=== PATIENT | male | born 1975 | race Caucasian/White ===

== ENCOUNTER 2017-09-13 20:52 | Emergency (ER) | payer SELFPAY ==
[2017-09-13 21:15] VITALS: BP 138/78; PULSE 81; RESP 18; TEMP 98.5; O2SAT 99
--- NOTE | 2017-09-13 21:30 | ED PDOC ---
Lower Extremity Pain/Injury Time Seen by Provider: 09/13/17 21:16 Chief Complaint (Nursing): Lower Extremity Problem/Injury Chief Complaint (Provider): bilateral knee pain and rash History Per: Patient History/Exam Limitations: no limitations Onset/Duration Of Symptoms: Days (x1 week) Current Symptoms Are (Timing): Still Present Additional Complaint(s): 41 year old male presents to the emergency department complaining of leg pain and rash ongoing for 1 week. Patient ran on the treadmill last week and developed pain to both knees and shins. A friend of his gave him a topical pain reliever cream and after applying the cream he developed a rash to both legs. Patient is not sure of the name of the cream he was using. Patient has been applying alcohol to affected area daily but skin now feels more irritated. Aleve has not helped leg pain. He denies fever or chills. PMD: none provided Past Medical History Reviewed: Historical Data, Nursing Documentation, Vital Signs Vital Signs: Last Vital Signs Temp 98.5 F 09/13/17 21:10 Pulse 81 09/13/17 21:10 Resp 18 09/13/17 21:10 BP 138/78 09/13/17 21:10 Pulse Ox 99 09/13/17 21:10 - Medical History PMH: No Chronic Diseases - Surgical History Surgical History: No Surg Hx - Family History Family History: States: No Known Family Hx - Living Arrangements Living Arrangements: With Family - Social History Current smoker - smoking cessation education provided: No Alcohol: None Drugs: Denies - Home Medications Home Medications: Ambulatory Orders Medication Instructions Recorded Cyclobenzaprine HCl [Flexeril] 10 mg PO TID #21 tab 05/17/14 Ketorolac Tromethamine [Toradol] 10 mg PO Q6 PRN #19 tab 05/17/14 Clindamycin [Cleocin] 300 mg PO QID #28 cap 09/13/17 Cyclobenzaprine [Cyclobenzaprine 10 mg PO TID PRN #20 tab 09/13/17 HCl] Ibuprofen [Motrin Tab] 800 mg PO Q8 PRN #20 tab 09/13/17 Prednisone 50 mg PO DAILY #5 tablet 09/13/17 - Allergies Allergies/Adverse Reactions: Allergies Allergy/AdvReac Type Severity Reaction Status Date / Time No Known Allergies Allergy Verified 05/17/14 07:15 Wells Criteria for PE - Wells Criteria for Pulmonary Embolism Clinical Signs and Symptoms of DVT: No P.E is #1 Diagnosis, or Equally Likely: No Heart Rate >100: No Immobilization at least 3 days;Surgery previous 4 weeks: No Previous, objectively diagnosed PE or DVT: No Hemoptysis: No Malignancy w/treatment within 6 months, or palliative: No Total Score: 0 Review of Systems ROS Statement: Except As Marked, All Systems Reviewed And Found Negative Musculoskeletal: Positive for: Other (bilateral leg pain) Skin: Positive for: Rash (on both lower extremities ) Physical Exam - Reviewed Nursing Documentation Reviewed: Yes Vital Signs Reviewed: Yes - Physical Exam Appears: Positive for: Well, Non-toxic, No Acute Distress Head Exam: Positive for: ATRAUMATIC, NORMAL INSPECTION, NORMOCEPHALIC Skin: Positive for: Rash (pustular rash on erythematous base noted to bilateral shins, no active drainage) Eye Exam: Positive for: Normal appearance Extremity: Positive for: Other (Full range of motion bilateral lower extremities , no calf tenderness bilaterally, normal distal pulses) Neurologic/Psych: Positive for: Alert, Oriented (x3) - ECG O2 Sat by Pulse Oximetry: 99 (RA) Pulse Ox Interpretation: Normal Medical Decision Making Medical Decision Making: Time: 21:22 Initial Impression: 41 year old male with allergic dermatitis and skin infection Initial Plan: --Clindamycin 300mg PO --Motrin 600mg PO --Prednisone 60mg PO Patient was advised to stop using topical cream and all other topical solutions. He was given prescription for clindamycin, Motrin and prednisone, as well as Flexeril for leg pain. Patient was advised to follow-up in 2-3 days with clinic or return to emergency room any time if acutely worse. Scribe Attestation: Documented by Cynthia Boateng, acting as a scribe for Terra Gupta PA-C. Provider Scribe Attestation: All medical record entries made by the Scribe were at my direction and personally dictated by me. I have reviewed the chart and agree that the record accurately reflects my personal performance of the history, physical exam, medical decision making, and the department course for this patient. I have also personally directed, reviewed, and agree with the discharge instructions and disposition. Disposition - Clinical Impression Clinical Impression: Allergic dermatitis, Cellulitis - Patient ED Disposition Is Patient to be Admitted: No Counseled Patient/Family Regarding: Diagnosis, Need For Followup, Rx Given - Disposition Referrals: [facility] [Outside] Disposition: Routine/Home Disposition Time: 21:56 Condition: STABLE Additional Instructions: Take prescription meds as directed. Do not apply any topical creams to affected area. Rest as much as possible and avoid any strenuous activity. Follow-up with clinic in 2-3 days Prescriptions: Clindamycin [Cleocin] 300 mg PO QID #28 cap Cyclobenzaprine [Cyclobenzaprine HCl] 10 mg PO TID PRN #20 tab PRN Reason: Muscle Spasm Ibuprofen [Motrin Tab] 800 mg PO Q8 PRN #20 tab PRN Reason: Pain, Moderate (4-7) Prednisone 50 mg PO DAILY #5 tablet Instructions: Skin Rash, Cellulitis (Skin Infection), Adult (DC) Forms: [employer] (Colombian)
== END 2017-09-13 22:24 | disposition home or self-care (01) ==
LOC: H.ER 20:52
DX: L08.9 Local infection of the skin and subcutaneous tissue, unspecified (principal); L23.9 Allergic contact dermatitis, unspecified cause

== ENCOUNTER 2017-11-15 15:49 | Emergency (ER) | payer OTHER ==
[2017-11-15 16:15] VITALS: RESP 18; TEMP 98.2
--- NOTE | 2017-11-15 16:35 | ED PDOC ---
HPI: Male Pain Time Seen by Provider: 11/15/17 16:21 Chief Complaint (Nursing): Male Genitourinary Chief Complaint (Provider): blood in seman History Per: Patient Additional Complaint(s): Pt is a 41 yo male, no PMH, states he noticed blood in his semen since 3 days ago, denies penile or testicular pain, denies dyusria, denies penile discharge. No rectal pain, no difficulty urinating. Pt reports being in a monogamous relationship with his . No concern for STI Past Medical History Reviewed: Nursing Documentation, Vital Signs Vital Signs: Last Vital Signs Temp 98.2 F 11/15/17 16:13 Pulse 65 11/15/17 16:13 Resp 18 11/15/17 16:13 BP 125/80 11/15/17 16:13 Pulse Ox 100 11/15/17 16:13 - Medical History PMH: No Chronic Diseases - Surgical History Surgical History: No Surg Hx - Family History Family History: States: Unknown Family Hx - Living Arrangements Living Arrangements: With Family - Social History Current smoker - smoking cessation education provided: No Alcohol: Social Drugs: Denies - Home Medications Home Medications: Ambulatory Orders Medication Instructions Recorded Cyclobenzaprine HCl [Flexeril] 10 mg PO TID #21 tab 05/17/14 Ketorolac Tromethamine [Toradol] 10 mg PO Q6 PRN #19 tab 05/17/14 Clindamycin [Cleocin] 300 mg PO QID #28 cap 09/13/17 Cyclobenzaprine [Cyclobenzaprine 10 mg PO TID PRN #20 tab 09/13/17 HCl] Ibuprofen [Motrin Tab] 800 mg PO Q8 PRN #20 tab 09/13/17 Prednisone 50 mg PO DAILY #5 tablet 09/13/17 - Allergies Allergies/Adverse Reactions: Allergies Allergy/AdvReac Type Severity Reaction Status Date / Time No Known Allergies Allergy Verified 11/15/17 16:32 Review of Systems ROS Statement: Except As Marked, All Systems Reviewed And Found Negative Genitourinary Male: Positive for: Other (hematospemia) Physical Exam - Reviewed Nursing Documentation Reviewed: Yes Vital Signs Reviewed: Yes - Physical Exam Appears: Positive for: Well, Non-toxic, No Acute Distress Head Exam: Positive for: ATRAUMATIC, NORMAL INSPECTION, NORMOCEPHALIC Skin: Positive for: Normal Color, Warm, DRY Eye Exam: Positive for: EOMI, Normal appearance, PERRL ENT: Positive for: Normal ENT Inspection Neck: Positive for: Normal, Painless ROM Cardiovascular/Chest: Positive for: Regular Rate, Rhythm Respiratory: Positive for: CNT, Normal Breath Sounds Gastrointestinal/Abdominal: Positive for: Normal Exam, Soft Male Genital Exam: Positive for: normal genitalia, normal prostate. Negative for: no hernia, epididymal tenderness, erythema, inguinal tenderness, lesions, scrotum tenderness (R), scrotum tenderness (L), testicular tenderness (R), testicular tenderness (L), urethral discharge Back: Positive for: Normal Inspection Extremity: Positive for: Normal ROM Neurologic/Psych: Positive for: Alert, Oriented - ECG O2 Sat by Pulse Oximetry: 100 Medical Decision Making Medical Decision Making: UA reviewed, (-) blood, leuks or nites Chlamydia/Ghonorrhea sent Pt without any complaints of pain at this time. given urology follow up and causes of hematospemia discussed at length. stable for discharge at this time. advised to return to ED if at anytime condition worsens Disposition - Clinical Impression Clinical Impression: Hematospermia - Patient ED Disposition Is Patient to be Admitted: No - Disposition Referrals: David Brody MD [Staff Provider] - Disposition: Routine/Home Disposition Time: 18:45 Condition: STABLE Instructions: Prostatitis (DC) Forms: [employer] (Samoan) Print Language: PORTUGUESE
[2017-11-15 16:52] LABS: URINE BACTERIA RARE (<OCC); URINE BILIRUBIN NEGATIVE (NEGATIVE); URINE BLOOD NEGATIVE (NEGATIVE); URINE CLARITY SLIGHTY-CLOUDY (Clear); URINE COLOR YELLOW (YELLOW); URINE GLUCOSE (UA) NEG (Normal); URINE LEUKOCYTE ESTERASE NEG Leu/uL (Negative); URINE PROTEIN NEGATIVE (NEGATIVE); URINE UROBILINOGEN 0.2-1.0 mg/dL (0.2-1.0)
[2017-11-15 18:09] LABS: SQUAMOUS EPITHIAL < 1 /hpf (0-5)
[2017-11-15 18:46] VITALS: BP 126/76; PULSE 61; O2SAT 99
== END 2017-11-15 18:50 | disposition home or self-care (01) ==
LOC: H.ER 15:49
DX: R36.1 Hematospermia (principal)